=== PATIENT | male | born 1955 | race Caucasian/White ===

== ENCOUNTER 2018-06-05 09:15 | Outpatient (RCR) | payer BC | END 2018-06-19 | disposition home or self-care (01) | LOC: WSPT | DX: M54.42 Lumbago with sciatica, left side (principal); M54.41 Lumbago with sciatica, right side; G89.29 Other chronic pain; Z79.01 Long term (current) use of anticoagulants; Z79.899 Other long term (current) drug therapy; Z87.891 Personal history of nicotine dependence | CPT/HCPCS: G0283-GP ==

== ENCOUNTER → 2018-10-02 | Outpatient (RCR) | payer BC | END | disposition home or self-care (01) | LOC: WSPT | DX: M54.5 Low back pain (principal); G89.29 Other chronic pain ==

== ENCOUNTER 2018-10-16 10:30 | Outpatient (RCR) | payer BC | END 2019-01-02 | disposition home or self-care (01) | LOC: WSPT | DX: M54.42 Lumbago with sciatica, left side (principal); M54.41 Lumbago with sciatica, right side; G89.29 Other chronic pain ==

== ENCOUNTER → 2018-11-06 | Outpatient (CLI) | payer BC | LOC: SUN.DIA 10-30 09:06 | DX: E11.9 Type 2 diabetes mellitus without complications (principal); E78.5 Hyperlipidemia, unspecified | CPT/HCPCS: G0108 ==

== ENCOUNTER → 2018-11-21 | Outpatient (CLI) | payer BC | LOC: SUN.DIA 10:30 | DX: E11.9 Type 2 diabetes mellitus without complications (principal); E78.5 Hyperlipidemia, unspecified | CPT/HCPCS: G0108 ==